=== PATIENT | female | born 1945 | race Caucasian/White ===

== ENCOUNTER → 2017-12-20 | Outpatient (CLI) | payer MEDICARE ==
[2017-12-20 14:31] LABS: Basophils # (A) 0.1 k/uL (0-0.2); Basophils % (A) 1 %; Eosinophils # (A) 0.2 k/uL (0-0.7); Eosinophils % (A) 3 %; HCT 40.2 % (34.0-46.0); HGB 13.8 gm/dL (11.4-16.0); Lymphocytes % (A) 26 %; MCH 29.5 pg (25.0-35.0); MCHC 34.3 g/dL (31.0-37.0); Mean Platelet Volume 6.6; Monocytes # (A) 0.4 k/uL (0-1.0); Monocytes % (A) 6 %; Neutrophils # (A) 4.7 k/uL (1.3-7.7); Neutrophils % (A) 62 %; Platelet Count 233 k/uL (150-450); RBC 4.68 m/uL (3.80-5.40); RDW 12.7 % (11.5-15.5); WBC 7.6 k/uL (3.8-10.6)
[2017-12-20 14:39] LABS: Albumin 4.3 g/dL (3.5-5.0); Calcium 9.7 mg/dL (8.4-10.2); Potassium 4.4 mmol/L (3.5-5.1); Total Bilirubin 0.7 mg/dL (0.2-1.3); Total Protein 7.4 g/dL (6.3-8.2)
[2017-12-20 14:55] LABS: T4, Free (Free Thyroxine) 0.96 ng/dL (0.78-2.19)
--- NOTE | 2017-12-20 23:27 | CT ---
EXAMINATION TYPE: CT abdomen pelvis wo/w con DATE OF EXAM: 12/20/2017 COMPARISON: NONE HISTORY: 71-year-old female Hematuria. History of polycystic kidney disease TECHNIQUE: Contiguous axial scanning of the abdomen and pelvis before and after administration of 100 ml Isovue 300 IV contrast. Delayed images through the kidneys and coronal/sagittal reconstructions performed. CT DLP: 1673 mGycm Automated exposure control for dose reduction was used. FINDINGS: Heart upper limits of normal in size without pericardial effusion. Strandy atelectasis in the lower l ungs without pericardial effusion. Small hiatal hernia. Liver enlarged measuring 20.8 cm. Some focal fat along the anterior falciform ligament. No biliary du ctal dilatation. Portal venous system is patent. Gallbladder, adrenal glands, spleen with hilar splenule, and pancreas appear within normal limits. No dilated small bowel, free fluid, or free air. Normal appendix. Oral contrast progressed to the hepatic flexure. There is mild superimposed left hemicolonic divertic ulosis, greatest in the sigmoid colon. Mild atelectatic calcifications within the abdominal aorta and iliac arteries. Extensive artifact from the patient's bilateral hip arthroplasties limits visualization of the pelvis . Uterus partially visualized as are both ovaries with a 1.2 cm cyst in the left ovary. Annual ultras ound surveillance performed for this finding. With attention to the kidneys, multiple lesions are present bilaterally. Many of the fluid attenuatio n but many are too small for adequate CT characterization. Others show varying degrees of hyperdensit y compatible with hemorrhagic or proteinaceous cysts. Largest on the right measures 2.6 cm and largest on the left measures 4.1 cm and are compatible with benign cysts. No clearly suspicious renal lesion is seen. LUNGS: Bilateral total of 4 biopsies. Degenerative changes left SI joint and facet arthropathy mid to lower lumbar spine. Endplate spondylosis lower thoracic spine. IMPRESSION: 1. NUMEROUS BILATERAL RENAL CYSTS MEASURING UP TO 4.1 CM. MANY OF THE RENAL LESIONS ARE TOO SMALL FOR ACCURATE CT CHARACTERIZATION AND SOME SHOW VARYING DEGREES OF HEMORRHAGIC AND PROTEINACEOUS DEBRIS. NO CLEARLY SUSPICIOUS RENAL LESION IS SEEN. 2. NO NEPHROLITHIASIS OR HYDRONEPHROSIS. 3. HEPATOMEGALY (20.8 CM), LEFT HEMICOLONIC DIVERTICULOSIS, AND SMALL HIATAL HERNIA.
== END | disposition home or self-care (01) ==
LOC: RADCTMAIN 13:23
PROVIDERS: ATTEND Urology
DX: N28.1 Cyst of kidney, acquired (principal); R16.0 Hepatomegaly, not elsewhere classified; K57.30 Diverticulosis of large intestine without perforation or abscess without bleeding; K44.9 Diaphragmatic hernia without obstruction or gangrene; E55.9 Vitamin D deficiency, unspecified; E03.9 Hypothyroidism, unspecified; Z91.012 Allergy to eggs; Z13.220 Encounter for screening for lipoid disorders; Z88.5 Allergy status to narcotic agent; Z88.2 Allergy status to sulfonamides; Z91.048 Other nonmedicinal substance allergy status; Z00.00 Encounter for general adult medical examination without abnormal findings
CPT/HCPCS: 84439; 80061; 80053; 84443; 85025; 82306; 74178; 36415; Q9967

== ENCOUNTER → 2018-11-15 | Outpatient (CLI) | payer MEDICARE ==
[2018-11-15 23:22] LABS: African American GFR (CKD) 52.7 (60.0-200.0)
== END | disposition home or self-care (01) ==
LOC: LABWHC1 16:02
PROVIDERS: ATTEND Pediatrics
DX: N18.2 Chronic kidney disease, stage 2 (mild) (principal)
CPT/HCPCS: 36415; 82565; 84520

== ENCOUNTER → 2018-11-18 | Outpatient (CLI) | payer MEDICARE ==
--- NOTE | 2018-11-18 14:29 | CT ---
EXAMINATION TYPE: CT abdomen pelvis wo/w con DATE OF EXAM: 11/18/2018 COMPARISON: 12/20/2017 HISTORY: Generalized abdominal pain, bloating and changes in bowel habits. History of diverticulosis. CT DLP: 1603.2 mGycm Automated exposure control for dose reduction was used. TECHNIQUE: Helical acquisition of images was performed from the lung bases through the pelvis. CONTRAST: Performed with Oral Contrast and without and with IV Contrast, patient injected with 80 mL of Isovue 300. FINDINGS: Lung bases are clear of infiltrate. There is minimal reticular interstitial density at the lung bases . There is mild hiatal hernia. There is no pleural effusion. There is no pericardial effusion. Liver spleen gallbladder appear normal. Bile ducts are not dilated. There is no evidence of pancreati c mass. There are numerous bilateral renal cortical cysts that measure up to 4 cm. There is no hydronephrosis . Ureters are not dilated. There is faint 3 mm calcification upper pole left kidney. There is 2 mm ca lcification interpolar left kidney. There is 4 mm calcification anterior left kidney. There is no ret roperitoneal adenopathy. There is normal renal function. Bladder distends smoothly. There is bilateral hip prosthesis. There is no evidence of a pelvic mass. There is no free fluid in the pelvis. Appendix appears normal. There is no mesenteric edema. There is no ascites or free air. There is normal contrast opacification of the small bowel. Uterus is antever nacho. There is mixed density oval-shaped mass on the left lateral pelvic sidewall measures 2.4 x 1.5 c m that contains fat. This could be a lymph node unchanged. There are a few sigmoid diverticula. There is no evidence of diverticulitis. There are some spondylotic changes in the lumbar spine. I see no b kaylee destructive process. There is no lumbar compression fracture. IMPRESSION: NUMEROUS RENAL CYSTS UNCHANGED. NO SUSPICIOUS RENAL MASS. NONOBSTRUCTING LEFT RENAL CALCULI. MINIMAL SIGMOID DIVERTICULOSIS. NO ADVERSE CHANGE OVERALL COMPARED TO OLD EXAM.
== END ==
LOC: RADCTMAIN 11:38
PROVIDERS: ATTEND Pediatrics
DX: K57.30 Diverticulosis of large intestine without perforation or abscess without bleeding (principal); N28.1 Cyst of kidney, acquired; N20.0 Calculus of kidney
CPT/HCPCS: 74178; Q9967 ×2

== ENCOUNTER → 2019-01-23 | Outpatient (CLI) | payer MEDICARE ==
--- NOTE | 2019-01-23 15:47 | NM ---
EXAMINATION TYPE: NM hepatobiliary w EF DATE OF EXAM: 01/23/2019 COMPARISON: NONE HISTORY: Pain TECHNIQUE: After the intravenous administration of 5.2 mCi Tc 99m Mebrofenin hepatobiliary scintigrap hy is performed. Immediate images post injection. FINDINGS: There is satisfactory initial accumulation of tracer by the liver. The gallbladder is visualized wit hin 35 minutes. The small bowel activity is noted within 10 minutes. At one hour 8 ounces of oral e nsure plus is given to mimic CCK and gallbladder ejection fraction is calculated at 81 %, in the norm al range. Therefore there is no scintigraphic evidence of cystic or common bile duct obstruction to suggest acute cholecystitis or gallbladder dyskinesia. IMPRESSION: Exam is within normal limits.
== END | disposition home or self-care (01) ==
LOC: RADNMMAIN 13:01
PROVIDERS: ATTEND Pediatrics
DX: K57.90 Diverticulosis of intestine, part unspecified, without perforation or abscess without bleeding (principal)
CPT/HCPCS: 78226; A9537

== ENCOUNTER 2020-01-04 09:55 | Inpatient (IN) | payer MEDICARE ==
[2020-01-04] MEDS ORDERED: ASPIRIN 81 MG PO STA (10:41)
--- NOTE | 2020-01-04 11:12 | ED ---
General Adult HPI - General Chief complaint: Shortness of Breath Stated complaint: COVID+, SOB Time Seen by Provider: 01/04/20 10:27 Source: patient, RN notes reviewed, old records reviewed Mode of arrival: wheelchair Limitations: no limitations - History of Present Illness Initial comments: 74-year-old female patient who has history of polycystic kidney disease parents ED for evaluation. Patient tested positive for Covid. She reports that she has been coughing for 10 days. However patient developed some chest pains today reports in her right parasternal region. She reports that she has had some shortness of breath with coughing but reports that her breathing is okay right now. Systemic: Pt denies fatigue, fever/chills, rash. Pt denies weakness, night sweats, weight loss. Neuro: Pt denies headache, visual disturbances, syncope or pre-syncope. HEENT: Pt denies ocular discharge or irritation, otalgia, rhinorrhea, pharyngitis or notable lymphadenopathy. Cardiopulmonary: Pt denies SOB, heart palpitations, dyspnea on exertion. Abdominal/GI: Pt denies abdominal pain, n/v/d. : Pt denies dysuria, burning w/ urination, frequency/urgency. Denies new onset urinary or bowel incontinence. MSK: Pt denies myalgia, loss of strength or function in extremities. Neuro: Pt denies new onset weakness, paresthesias. - Related Data Home Medications Medication Instructions Recorded Confirmed Irbesartan 75 mg PO HS 01/04/20 01/04/20 Allergies Allergy/AdvReac Type Severity Reaction Status Date / Time codeine Allergy Rash/Hives Verified 01/04/20 12:46 Sulfa (Sulfonamide Allergy Nausea Verified 01/04/20 12:46 Antibiotics) Review of Systems ROS Statement: Those systems with pertinent positive or pertinent negative responses have been documented in the HPI. ROS Other: All systems not noted in ROS Statement are negative. Past Medical History Additional Past Medical History / Comment(s): polycystic kidney disease Additional Past Surgical History / Comment(s): double hip replacement Smoking Status: Never smoker Past Alcohol Use History: None Reported Past Drug Use History: None Reported General Exam - General Exam Comments Initial Comments: Constitutional: NAD, AOX3, Pt has pleasant affect. HEENT: NC/AT, trachea midline, neck supple, no lymphadenopathy. Posterior pharynx non erythematous, without exudates. External ears appear normal, without discharge. Mucous membranes moist. Eyes PERRLA, EOM intact. There is no scleral icterus. No pallor noted. Cardiopulmonary: RRR, no murmurs, rubs or gallops, no JVD noted. Mild rales note d right side. No peripheral edema. Abdominal exam: Abdomen soft and non-distended. Abdomen non-tender to palpation in all 4 quadrants. Bowel sounds active in LLQ. No hepatosplenomegaly. No ecchymosis Neuro: CN II-XII intact. No nuchal rigidity. No cervical spinal tenderness. MSK: No posterior calf tenderness bilaterally, homans sign negative bilaterally. Posterior tibialis and radial pulse +2 bilaterally. Sensation intact in upper and lower extremities. Full active ROM in upper and lower extremities, 5/5 stregnth. Limitations: no limitations Course Vital Signs 01/04/20 01/04/20 10:05 12:24 Temperature 98.6 F 98.2 F Pulse Rate 74 66 Respiratory 18 16 Rate Blood Pressure 127/78 141/91 O2 Sat by Pulse 95 95 Oximetry Medical Decision Making - Medical Decision Making 74-year-old female patient known covid positive to ED for chest pain, right sided. Described as dull and achy. Began earlier today. Vital signs are stable, afebrile. Physical exam negative for acute pathology. The investigations are all unremarkable. EKG is nonischemic. States laid questional patchy opacity of the right midlung. She'll be admitted for serial troponins cardiology evaluation. Case discussed with Dr. Robertson. - Lab Data Result diagrams: 01/04/20 11:01/04/20 11:04 Lab Results 01/04/20 01/04/20 01/04/20 Range/Units 11:04 11: 11:04 WBC 7.0 (3.8-10.6) k/uL RBC 4.79 (3.80-5.40) m/uL Hgb 14.4 (11.4-16.0) gm/dL Hct 42.2 (34.0-46.0) % MCV 88.1 (80.0-100.0) fL MCH 30.0 (25.0-35.0) pg MCHC 34.0 (31.0-37.0) g/dL RDW 12.3 (11.5-15.5) % Plt Count 200 (150-450) k/uL Neutrophils % 66 % Lymphocytes % 23 % Monocytes % 6 % Eosinophils % 3 % Basophils % 2 % Neutrophils # 4.6 (1.3-7.7) k/uL Lymphocytes # 1.6 (1.0-4.8) k/uL Monocytes # 0.4 (0-1.0) k/uL Eosinophils # 0.2 (0-0.7) k/uL Basophils # 0.1 (0-0.2) k/uL PT 9.8 (9.0-12.0) sec INR 0.9 (<1.2) APTT 22.9 (22.0-30.0) sec Sodium 139 (137-145) mmol/L Potassium 4.3 (3.5-5.1) mmol/L Chloride 108 H (98-107) mmol/L Carbon Dioxide 25 (22-30) mmol/L Anion Gap 6 mmol/L BUN 24 H (7-17) mg/dL Creatinine 0.77 (0.52-1.04) mg/dL Est GFR (CKD-EPI)AfAm 89 (>60 ml/min/1.73 sqM) Est GFR (CKD-EPI)NonAf 77 (>60 ml/min/1.73 sqM) Glucose 107 H (74-99) mg/dL Plasma Lactic Acid Aravind (0.7-2.0) mmol/L Calcium 9.0 (8.4-10.2) mg/dL Magnesium 2.1 (1.6-2.3) mg/dL Total Bilirubin 0.7 (0.2-1.3) mg/dL AST 23 (14-36) U/L ALT 14 (4-34) U/L Alkaline Phosphatase 74 (38-126) U/L Lactate Dehydrogenase 436 (313-618) U/L Troponin I (0.000-0.034) ng/mL C-Reactive Protein 5.2 (<10.0) mg/L Total Protein 7.3 (6.3-8.2) g/dL Albumin 4.2 (3.5-5.0) g/dL 01/04/20 01/04/20 Range/Units 11:04 11:04 WBC (3.8-10.6) k/uL RBC (3.80-5.40) m/uL Hgb (11.4-16.0) gm/dL Hct (34.0-46.0) % MCV (80.0-100.0) fL MCH (25.0-35.0) pg MCHC (31.0-37.0) g/dL RDW (11.5-15.5) % Plt Count (150-450) k/uL Neutrophils % % Lymphocytes % % Monocytes % % Eosinophils % % Basophils % % Neutrophils # (1.3-7.7) k/uL Lymphocytes # (1.0-4.8) k/uL Monocytes # (0-1.0) k/uL Eosinophils # (0-0.7) k/uL Basophils # (0-0.2) k/uL PT (9.0-12.0) sec INR (<1.2) APTT (22.0-30.0) sec Sodium (137-145) mmol/L Potassium (3.5-5.1) mmol/L Chloride (98-107) mmol/L Carbon Dioxide (22-30) mmol/L Anion Gap mmol/L BUN (7-17) mg/dL Creatinine (0.52-1.04) mg/dL Est GFR (CKD-EPI)AfAm (>60 ml/min/1.73 sqM) Est GFR (CKD-EPI)NonAf (>60 ml/min/1.73 sqM) Glucose (74-99) mg/dL Plasma Lactic Acid Aravind 1.6 (0.7-2.0) mmol/L Calcium (8.4-10.2) mg/dL Magnesium (1.6-2.3) mg/dL Total Bilirubin (0.2-1.3) mg/dL AST (14-36) U/L ALT (4-34) U/L Alkaline Phosphatase (38-126) U/L Lactate Dehydrogenase (313-618) U/L Troponin I <0.012 (0.000-0.034) ng/mL C-Reactive Protein (<10.0) mg/L Total Protein (6.3-8.2) g/dL Albumin (3.5-5.0) g/dL - EKG Data -: EKG Interpreted by Me (and Dr. Robertson ) EKG Comments: ventricular rate 69, pr interval 152, qrs 86, qt/qtc 446/477. normal sinus rhythm. prolonged qt. nonspecific t-wave abnormality. no concern for acute ischemia at this time. Disposition Clinical Impression: COVID-19, Chest pain Disposition: ADMITTED IP TO THIS HOSP Condition: Serious Is patient prescribed a controlled substance at d/c from ED?: No Referrals: Vijay Bonilla MD [Primary Care Provider] - 1-2 days
[2020-01-04 11:22] LABS: Basophils # (A) 0.1 k/uL (0-0.2); Basophils % (A) 2 %; Eosinophils # (A) 0.2 k/uL (0-0.7); Eosinophils % (A) 3 %; HCT 42.2 % (34.0-46.0); HGB 14.4 gm/dL (11.4-16.0); Lymphocytes # (A) 1.6 k/uL (1.0-4.8); Lymphocytes % (A) 23 %; MCV 88.1 fL (80.0-100.0); Mean Platelet Volume 7.8; Monocytes # (A) 0.4 k/uL (0-1.0); Monocytes % (A) 6 %; Neutrophils # (A) 4.6 k/uL (1.3-7.7); Neutrophils % (A) 66 %; Platelet Count 200 k/uL (150-450); RBC 4.79 m/uL (3.80-5.40); RDW 12.3 % (11.5-15.5)
[2020-01-04 11:38] LABS: INR 0.9 (<1.2); Partial Thromboplastin Time 22.9 sec (22.0-30.0); Prothrombin Time 9.8 sec (9.0-12.0)
[2020-01-04 11:39] LABS: Albumin 4.2 g/dL (3.5-5.0); C Reactive Protein 5.2 mg/L (<10.0); Magnesium 2.1 mg/dL (1.6-2.3); Potassium 4.3 mmol/L (3.5-5.1); Total Bilirubin 0.7 mg/dL (0.2-1.3); Total Protein 7.3 g/dL (6.3-8.2)
--- NOTE | 2020-01-04 11:45 | XR ---
EXAMINATION TYPE: XR chest 1V portable DATE OF EXAM: 01/04/2020 CLINICAL HISTORY: Suspected COVID-19 pneumonia. TECHNIQUE: Portable frontal view of the chest. COMPARISON: None FINDINGS: The cardiomediastinal silhouette is within normal limits for size. Pulmonary vasculature i s normal. There is very subtle patchy opacity of the right mid lung. No pleural effusion or pneumotho rax seen. The osseous structures are intact. IMPRESSION: Questionable patchy opacity over the right mid lung.
[2020-01-04] MEDS ORDERED: NITROGLYCERIN SL TABS 0.4 MG TAB SUBLINGUAL PRN (13:43)
[2020-01-04] MEDS ORDERED: guaiFENesin-DM 100-10MG/5ML 10 ML CUP PO PRN (16:29)
[2020-01-04] MEDS ORDERED: ACETAMINOPHEN TAB 325 MG TAB PO STA (16:37)
[2020-01-04] MEDS: SODIUM CHLORIDE 0.9% 1,000 ML IV SCH (16:47)
--- NOTE | 2020-01-04 17:17 | P.HPIM ---
History of Present Illness patient very pleasant 74-year-old female who was recently diagnosed with Covid 19 about 10 days ago came in with complaints of coughing with greenish sputum production started about couple days ago along with chest pain is pleuritic and only happens when she coughs on the right side of the chest along with some shortness of breath. Patient was actually admitted for rule out acute coronary syndromes. Patient chest pain is pleuritic and significantly severe.patient had a chest x-ray which is suspicious for right middle lobe infiltrate although doesn't look like typical pneumonic infiltrate. Cardiology was consulted. I'll obtain a sputum culture patient will be started on Rocephin although there is no leukocytosis or fever at this time. Lungs are clear to auscultation. We'll [place] in his computed tomography scan of the chest which will help me rule out pulmonary embolism as well as pneumonia which can be post viral. Review of Systems REVIEW OF SYSTEMS: CONSTITUTIONAL: No fever, no malaise, no fatigue. HEENT: No recent visual problems or hearing problems. Denied any sore throat. CARDIOVASCULAR: Noorthopnea, PND, no palpitations, no syncope. PULMONARY: no hemoptysis. GASTROINTESTINAL: No diarrhea, no nausea, no vomiting, no abdominal pain. NEUROLOGICAL: No headaches, no weakness, no numbness. HEMATOLOGICAL: Denies any bleeding or petechiae. GENITOURINARY: Denies any burning micturition, frequency, or urgency. MUSCULOSKELETAL/RHEUMATOLOGICAL: Denies any joint pain, swelling, or any muscle pain. ENDOCRINE: Denies any polyuria or polydipsia. The rest of the 14-point review of systems is negative. Past Medical History Additional Past Medical History / Comment(s): polycystic kidney disease Additional Past Surgical History / Comment(s): double hip replacement Smoking Status: Never smoker Past Alcohol Use History: None Reported Past Drug Use History: None Reported Medications and Allergies Home Medications Medication Instructions Recorded Confirmed Type Irbesartan 75 mg PO HS 01/04/20 01/04/20 History Allergies Allergy/AdvReac Type Severity Reaction Status Date / Time codeine Allergy Rash/Hives Verified 01/04/20 12:46 Sulfa (Sulfonamide Allergy Nausea Verified 01/04/20 12:46 Antibiotics) Physical Exam Vitals: Vital Signs Temp Pulse Resp BP Pulse Ox 01/04/20 16:49 98.2 F 68 16 142/78 94 L 11/06/20 14:42 98.2 F 67 14 141/78 96 01/04/20 14:04 98.2 F 64 16 95 01/04/20 12:24 98.2 F 66 16 141/91 95 01/04/20 10:05 98.6 F 74 18 127/78 95 Intake and Output 01/04/20 01/04/20 01/04/20 06:59 14:59 22:59 Other: Weight 81.193 kg PHYSICAL EXAMINATION: GENERAL: The patient is alert and oriented x3, not in any acute distress. Well developed, well nourished. HEENT: Pupils are round and equally reacting to light. EOMI. No scleral icterus. No conjunctival pallor. Normocephalic, atraumatic. No pharyngeal erythema. No thyromegaly. CARDIOVASCULAR: S1 and S2 present. No murmurs, rubs, or gallops. PULMONARY: Chest is clear to auscultation, no wheezing or crackles. ABDOMEN: Soft, nontender, nondistended, normoactive bowel sounds. No palpable organomegaly. MUSCULOSKELETAL: No joint swelling or deformity. EXTREMITIES: No cyanosis, clubbing, or pedal edema. NEUROLOGICAL: Gross neurological examination did not reveal any focal deficits. SKIN: No rashes. Results CBC & Chem 7: 01/04/20 11:04 01/04/20 11:04 Labs: Abnormal Lab Results - Last 24 Hours (Table) 01/04/20 Range/Units 11:04 Chloride 108 H (98-107) mmol/L BUN 24 H (7-17) mg/dL Glucose 107 H (74-99) mg/dL Assessment and Plan Plan: -chest pain: Pleuritic in nature, cardiology is also evaluating the patient and we'll also rule out cardiac causes. Possibility of either postviral pneumonia or a PE which can be ruled out with a CT angios the chest. We'll Also obtain sputum cultures. Patient will be started on Rocephin for now.inflammatory markers are within normal limits. -recent Covid 19 pneumonia -History of polycystic kidney disease
--- NOTE | 2020-01-04 17:38 | CT ---
EXAMINATION TYPE: CT angio chest DATE OF EXAM: 01/04/2020 COMPARISON: None HISTORY: cough and shortness of breath. CT DLP: 324.7 mGycm Automated exposure control for dose reduction was used. CONTRAST: Performed with IV Contrast, patient injected with 100 mL of Isovue 370. There are 3-D post processed images. The lungs are clear of consolidation. There is no pleural effusion. There is small hiatal hernia. Perri er and spleen appear intact. There is no evidence of pancreatic mass. Heart and mediastinum are normal. There are no hilar masses. Thoracic aorta is intact. There is no an eurysm or dissection. The ascending aorta measures 3.5 cm. There is normal contrast opacification of the pulmonary arteries. There are no filling defects. There is spurring in the thoracic spine. I see no bony destructive process. IMPRESSION: No evidence of pulmonary embolism. Small hiatal hernia.
[2020-01-04 20:14] LABS: Ferritin 302.3 ng/mL (10.0-291.0)
[2020-01-04] MEDS ORDERED: ACETAMINOPHEN TAB 325 MG TAB PO PRN (21:03)
[2020-01-04] MEDS ORDERED: LOSARTAN 25 MG TAB PO SCH (21:15)
[2020-01-05] MEDS: SODIUM CHLORIDE 0.9% 1,000 ML IV SCH ×2 (04:47→06:35)
[2020-01-05 07:26] LABS: Cholesterol 154 mg/dL (<200); HDL Cholesterol 28 mg/dL (40-60); LDL Cholesterol,Calculated 87 mg/dL (0-99); Triglycerides 196 mg/dL (<150)
[2020-01-05] MEDS ORDERED: ASPIRIN 325 MG TAB PO SCH (09:00)
[2020-01-05 09:05] VITALS: TEMP 97.9
[2020-01-05] MEDS: ALBUTEROL HFA INHALER INHALATION PRN ×2 (09:22→12:44)
[2020-01-05 12:52] VITALS: BP 178/85; PULSE 68; RESP 16
--- NOTE | 2020-01-05 14:07 | P.CRDCN ---
History of Present Illness Consult date: 01/05/20 Consult reason: chest pain (COVID) History of present illness: History of present illness: This is a 74-year-old female with past medical history of polycystic kidney disease. Patient was recently tested positive for Covid at the urgent care center about 10 days ago. She presented to [facility] emergency center yesterday due to chest pain that was a pressure under her bilateral breasts along with a cough. She complained of shortness of breath with cough and pain with coughing. She is found to be afebrile, heart rate 74, blood pressure 127/78. CBC was normal. CMP was unremarkable. Blood sugar 107. Lactic acid 1.7. Troponin negative on 3 draws. Triglycerides 196, cholesterol 154, LDL 87, HDL 28. Pro-calcitonin 0.4. LDH normal at 436. D-dimer 0.3. EKG was a sinus rhythm with no acute ST changes. Chest x-ray revealed questionable patchy opacities over the right mid lung. CT angiogram of the chest was negative for pulmonary embolism. Review Of Systems: Limited due to Covid isolation. Lungs: No shortness of breath, reports cough Cardiovascular: No chest pain, no lower extremity edema. Physical examination: Limited due to Covid isolation. Gen: This is a 74-year-old female. Patient is resting in bed and appears comfortable and in no acute distress. VS: Afebrile, heart rate 62, blood pressure 177/91, pulse ox 94% on room air. HEENT: Head is atraumatic, normocephalic. LUNGS: No acute respiratory distress. No accessory muscle usage. NEUROLOGICAL: Patient is awake, alert and oriented x3. Assessment: Pleuritic type chest pain, acute Selene syndrome ruled out Pulmonary embolism ruled out Recent positive test for Covid 19 Plan: Obtain 2-D echocardiogram and Doppler study to assess cardiac structure and function Patient is cleared for discharge from cardiology. Thank you kindly for this consultation. Nurse practitioner note has been reviewed, I agree with documented findings and plan of care. Patient was seen and examined. Past Medical History Additional Past Medical History / Comment(s): polycystic kidney disease History of Any Multi-Drug Resistant Organisms: None Reported Additional Past Surgical History / Comment(s): double hip replacement Past Anesthesia/Blood Transfusion Reactions: No Reported Reaction Smoking Status: Former smoker - Past Family History Father Additional Family Medical History / Comment(s): of old age Mother Additional Family Medical History / Comment(s): pancreatic ca Medications and Allergies Home Medications Medication Instructions Recorded Confirmed Type Irbesartan 75 mg PO HS 01/04/20 01/04/20 History Albuterol Inhaler [Ventolin Hfa 2 puff INHALATION RT-QID PRN #1 01/05/20 Rx Inhaler] inhaler Azithromycin [Zithromax Tri-Alex (3 500 mg PO DAILY 5 Days #5 tab 01/05/20 Rx tabs)] traMADol HCL [Ultram] 50 mg PO Q4HR PRN 3 Days #18 tab 01/05/20 Rx Allergies Allergy/AdvReac Type Severity Reaction Status Date / Time codeine Allergy Rash/Hives Verified 01/04/20 12:46 Sulfa (Sulfonamide Allergy Nausea Verified 01/04/20 12:46 Antibiotics) Physical Exam Vitals: Vital Signs Temp Pulse Pulse Resp BP BP Pulse Ox 01/05/20 11:30 68 16 178/85 95 01/05/20 09:00 97.9 F 62 18 177/91 94 L 01/05/20 04:00 97.8 F 62 18 148/79 94 L 01/05/20 00:00 98 F 63 18 135/68 96 01/04/20 20:00 98.9 F 68 60 18 154/86 151/84 94 L 01/04/20 19:28 69 19 145/85 96 01/04/20 16:49 98.2 F 68 16 142/78 94 L 01/04/20 14:42 98.2 F 67 14 141/78 96 01/04/20 14:04 98.2 F 64 16 95 Intake and Output 01/04/20 01/05/20 01/05/20 22:59 06:59 14:59 Other: # Voids 1 1 Weight 81.193 kg 91.5 kg Results 01/04/20 11:04 01/04/20 11:04 Cardiac Enzymes 01/04/20 01/04/20 Range/Units 13:01 16:42 Troponin I <0.012 <0.012 (0.000-0.034) ng/mL Lipids 01/05/20 Range/Units 06:47 Triglycerides 196 H (<150) mg/dL Cholesterol 154 (<200) mg/dL HDL Cholesterol 28 L (40-60) mg/dL Current Medications Generic Name Dose Route Start Last Admin Trade Name Freq PRN Reason Stop Dose Admin Acetaminophen 650 mg 01/04/20 21:03 01/04/20 22:08 Acetaminophen Tab 325 Mg Tab PO 650 mg Q4HR PRN Administration Fever and/ or Pain Albuterol Sulfate 2 puff 01/04/20 16:28 01/05/20 12:44 Albuterol Hfa Inhaler INHALATION 2 puff RT-QID PRN Administration Shortness Of Breath Or Wheezing Aspirin 325 mg 01/05/20 09:00 01/05/20 09:01 Aspirin 325 Mg Tab PO 325 mg DAILY LILLIE Administration Guaifenesin/Dextromethorphan 10 ml 01/04/20 16:29 Guaifenesin-Dm 100-10mg/5ml 10 Ml Cup PO Q6H PRN Cough Sodium Chloride 1,000 mls @ 75 mls/hr 01/04/20 14:00 01/05/20 06:35 Saline 0.9% IV 75 mls/hr .[id number] LILLIE Administration Ceftriaxone Sodium 2 gm/ 50 mls @ 100 mls/hr 01/04/20 16:30 01/04/20 16:47 Sodium Chloride IVPB 100 mls/hr Q24H LILLIE Administration Losartan Potassium 25 mg 01/04/20 21:15 01/04/20 22:08 Losartan 25 Mg Tab PO 25 mg HS LILLIE Administration Nitroglycerin 0.4 mg 01/04/20 13:43 Nitroglycerin Sl Tabs 0.4 Mg Tab SUBLINGUAL Q5M PRN Chest Pain Intake and Output 01/04/20 01/05/20 01/05/20 22:59 06:59 14:59 Other: # Voids 1 1 Weight 81.193 kg 91.5 kg 01/04/20 11:04 01/04/20 11:04
--- NOTE | 2020-01-05 14:56 | P.DS ---
Providers Date of admission: 01/04/20 13:37 Attending physician: Jesús Bradley MD Consults: 01/04/20 13:43 Consult Physician Urgent Consulting Provider: Madhav Hines Consult Reason/Comments: chest pain, covid Do you want consulting provider notified?: Yes Primary care physician: [facility] Course: 74-year-old female who was recently diagnosed with Covid 19 about 10 days ago came in with complaints of coughing with greenish sputum production started about couple days ago along with chest pain is pleuritic and only happens when she coughs on the right side of the chest along with some shortness of breath. Patient was actually admitted for rule out acute coronary syndromes. Patient chest pain is pleuritic and significantly severe.patient had a chest x-ray which is suspicious for right middle lobe infiltrate although doesn't look like typical pneumonic infiltrate. Cardiology was consulted. I'll obtain a sputum culture patient will be started on Rocephin although there is no leukocytosis or fever at this time. Lungs are clear to auscultation. We'll [place] in his computed tomography scan of the chest which will help me rule out pulmonary embolism as well as pneumonia which can be post viral. 01/05/2020 Patient is not hypoxemic at this time. CT angios did not show any pneumonia but patient may have post viral bronchitis for which patient will be discharged on azithromycin CT angios did not show any pulmonary embolism. Patient does have severe musculoskeletal and pleuritic chest pain for which patient will be given a prescription for non-steroidal anti-inflammatory medication. Echo cardiac exam is being obtained if cleared by cardiology patient will be discharged today. PHYSICAL EXAMINATION: GENERAL: The patient is alert and oriented x3, not in any acute distress. Well developed, well nourished. HEENT: Pupils are round and equally reacting to light. EOMI. No scleral icterus. No conjunctival pallor. Normocephalic, atraumatic. No pharyngeal erythema. No thyromegaly. CARDIOVASCULAR: S1 and S2 present. No murmurs, rubs, or gallops. PULMONARY: Chest is clear to auscultation, no wheezing or crackles. ABDOMEN: Soft, nontender, nondistended, normoactive bowel sounds. No palpable organomegaly. MUSCULOSKELETAL: No joint swelling or deformity. EXTREMITIES: No cyanosis, clubbing, or pedal edema. NEUROLOGICAL: Gross neurological examination did not reveal any focal deficits. SKIN: No rashes. Assessment and Plan Plan: -chest pain: Pleuritic in nature, probably not cardiac, cardiology evaluated the patient. With regard patient will be discharged today ruled out post viral pneumonia, rule out pulmonary embolism. Patient probably has post viral bronchitis -recent Covid 19 pneumonia -History of polycystic kidney disease Patient Condition at Discharge: Serious Plan - Discharge Summary Discharge Rx Participant: Yes New Discharge Prescriptions: New traMADol HCL [Ultram] 50 mg PO Q4HR PRN 3 Days #18 tab PRN Reason: Pain Albuterol Inhaler [Ventolin Hfa Inhaler] 2 puff INHALATION RT-QID PRN #1 in haler PRN Reason: Shortness Of Breath Or Wheezing Azithromycin [Zithromax Tri-Alex (3 tabs)] 500 mg PO DAILY 5 Days #5 tab guaiFENesin-DM 100-10MG/5ML [Robitussin DM] 10 ml PO QID PRN #1 bottle PRN Reason: Cough Continue Irbesartan 75 mg PO HS Discharge Medication List Irbesartan 75 mg PO HS 01/04/20 [History] Albuterol Inhaler [Ventolin Hfa Inhaler] 2 puff INHALATION RT-QID PRN #1 inhaler 01/05/20 [Rx] Azithromycin [Zithromax Tri-Alex (3 tabs)] 500 mg PO DAILY 5 Days #5 tab 01/05/20 [Rx] guaiFENesin-DM 100-10MG/5ML [Robitussin DM] 10 ml PO QID PRN #1 bottle 01/05/20 [Rx] traMADol HCL [Ultram] 50 mg PO Q4HR PRN 3 Days #18 tab 01/05/20 [Rx] Follow up Appointment(s)/Referral(s): Vijay Bonilla MD [Primary Care Provider] - 3 Days Patient Instructions/Handouts: Chest Pain (DC) Discharge Disposition: HOME SELF-CARE
--- NOTE | 2020-01-05 15:36 | ECHOF ---
Referral Reason:chest pain MEASUREMENTS -------- HEIGHT: 170.2 cm WEIGHT: 91.2 kg BP: IVSd: 1.2 cm (0.6 - 1.1) LVIDd: 4.3 cm (3.9 - 5.3) LVPWd: 1.4 cm (0.6 - 1.1) IVSs: 1.7 cm LVIDs: 3.0 cm LVPWs: 1.7 cm LAESV Index (A-L): 25.69 ml/m Ao Diam: 2.8 cm (2.0 - 3.7) AV Cusp: 1.7 cm (1.5 - 2.6) LA Diam: 3.3 cm (2.7 - 3.8) MV EXCURSION: 9.371 mm (> 18.000) MV EF SLOPE: 37 mm/s (70 - 150) EPSS: 0.8 cm MV E Hemal: 0.73 m/s MV DecT: 199 ms MV A Hemal: 0.88 m/s MV E/A Ratio: 0.83 RAP: 5.00 mmHg RVSP: 9.18 mmHg FINDINGS -------- This was a technically good study. The left ventricular size is normal. There is mild concentric left ventricular hypertrophy. Overa ll left ventricular systolic function is normal with, an EF between 55 - 60 %. Normal LAP Grade 1 D iastolic Dysfunction. The right ventricle is normal in size. The left atrial size is normal. Normal LA size by volume 22+/-6 ml/m2. The right atrial size is normal. The aortic valve is trileaflet and appears structurally normal. The mitral valve is normal. The mitral valve leaflets are mildly thickened. Mild mitral regurgita tion is present. The tricuspid valve appears structurally normal. Mild tricuspid regurgitation present. Right vent ricular systolic pressure is normal at < 35 mmHg. There is no pulmonic regurgitation present. The aortic root size is normal. Normal inferior vena cava with normal inspiratory collapse consistent with estimated right atrial pre ssure of 5 mmHg. There is no pericardial effusion. CONCLUSIONS -------- 1. The left ventricular size is normal. 2. There is mild concentric left ventricular hypertrophy. 3. Overall left ventricular systolic function is normal with, an EF between 55 - 60 %. 4. Normal LAP Grade 1 Diastolic Dysfunction. 5. The mitral valve leaflets are mildly thickened. 6. Mild mitral regurgitation is present. 7. Mild tricuspid regurgitation present. 8. There is no pericardial effusion. [employer] CHIEF: Eloisa Frank RDCS
== END 2020-01-05 14:41 | disposition home or self-care (01) | DRG 204 ==
LOC: EC 09:55 → 3SCARD 13:37
PROVIDERS: ADMIT Internal Medicine; ATTEND Internal Medicine
DX: R07.1 Chest pain on breathing (principal); Q61.3 Polycystic kidney, unspecified; J40 Bronchitis, not specified as acute or chronic; Z96.643 Presence of artificial hip joint, bilateral; Z88.2 Allergy status to sulfonamides; Z79.899 Other long term (current) drug therapy; Z88.5 Allergy status to narcotic agent; Z80.0 Family history of malignant neoplasm of digestive organs; Z87.891 Personal history of nicotine dependence; Z86.19 Personal history of other infectious and parasitic diseases
CPT/HCPCS: 36415; 71045; 71275; 80053; 80061; 82728; 83605; 83615; 83735; 84145; 84484; 85025; 85379; 85610; 85730; 86140; 87040; 93005; 93306; 94640; 96365; 96366; 99285

== ENCOUNTER → 2020-12-04 | Outpatient (CLI) | payer MEDICARE ==
--- NOTE | 2020-12-05 04:15 | MR ---
EXAMINATION TYPE: MR knee LT wo con DATE OF EXAM: 12/04/2020 COMPARISON: None HISTORY: Left knee pain and swelling due to falling on knee, 2020 Multiplanar multiecho imaging of the left knee with no contrast. There is mild knee joint effusion. The anterior and posterior cruciate ligaments are intact. There is small horizontal tear of the anterior horn of the lateral meniscus on the superior surface. There is some mild increased signal on the inferior aspect of the posterior horn of the lateral meniscus cons istent with a mild tear. There is mild increased signal within the posterior horn of the medial meniscus consistent with mild intrasubstance tear. No evidence of a medial meniscal tear extending to the articular surface. The collateral ligaments are intact. There is no evidence of a fracture. I see no bony destructive pr ocess. There is no evidence of a fracture. IMPRESSION: Knee joint effusion consistent with some nonspecific synovitis. No evidence of ligamentous tear. Mild tears of the medial and lateral menisci as above. No significant joint space narrowing. No fract ure.
== END | disposition home or self-care (01) ==
LOC: RADMRIMAIN 16:32
PROVIDERS: ATTEND Orthopaedic Surgery
DX: M25.462 Effusion, left knee (principal)

== ENCOUNTER → 2021-01-23 | Outpatient (CLI) | payer MEDICARE ==
[2021-01-23 16:24] LABS: HCT 39.5 % (34.0-46.0); HGB 14.1 gm/dL (11.4-16.0); MCH 30.3 pg (25.0-35.0); MCHC 35.6 g/dL (31.0-37.0); MCV 84.9 fL (80.0-100.0); RBC 4.65 m/uL (3.80-5.40); RDW 12.2 % (11.5-15.5); WBC 7.9 k/uL (3.8-10.6)
[2021-01-23 16:25] LABS: Basophils # (A) 0.1 k/uL (0-0.2); Basophils % (A) 1 %; Eosinophils # (A) 0.3 k/uL (0-0.7); Eosinophils % (A) 3 %; Lymphocytes # (A) 2.2 k/uL (1.0-4.8); Lymphocytes % (A) 28 %; Mean Platelet Volume 7.2; Monocytes # (A) 0.5 k/uL (0-1.0); Monocytes % (A) 6 %; Neutrophils # (A) 4.7 k/uL (1.3-7.7); Neutrophils % (A) 60 %; Platelet Count 237 k/uL (150-450)
[2021-01-23 16:42] LABS: Potassium 4.2 mmol/L (3.5-5.1)
== END | disposition home or self-care (01) ==
LOC: LABPAT 15:36
PROVIDERS: ATTEND Orthopaedic Surgery
DX: Z01.812 Encounter for preprocedural laboratory examination (principal); M23.92 Unspecified internal derangement of left knee
CPT/HCPCS: 80051; 85025

== ENCOUNTER 2021-02-05 11:31 | Day surgery (SDC) | payer MEDICARE ==
[2021-02-03 10:32] VITALS: BMI 29.0
--- NOTE | 2021-02-04 17:40 | HP ---
HISTORY AND PHYSICAL DATE OF SURGERY: 02/05/2021 Megan Mullins is a 75-year-old patient seen with progressive left knee pain. We discussed options for treatment. She elected to proceed with left knee arthroscopy. Consent was obtained. PAST MEDICAL HISTORY: Hypothyroidism. PAST SURGICAL HISTORY: Bilateral total hip arthroplasty. DAILY MEDICATIONS: Levothyroxine, multivitamin, tramadol as needed. ALLERGIES: CODEINE, LODINE. SOCIAL HISTORY: She denies tobacco use. PHYSICAL EVALUATION OF THE LEFT KNEE: Range of motion zero to 130. Mild effusion. Tenderness along the medial and lateral joint lines. Positive medial Ca's. Positive lateral Ca's. Ligaments stable. Hip rotation without pain. Distal neurovascular exam intact. Left knee radiographs revealed mild osteoarthritis. MRI left knee revealed medial and lateral meniscal tears. IMPRESSION: 1. Internal derangement of the left knee with medial and lateral meniscal tears. 2. Hypothyroidism. PLAN: Left knee arthroscopy with partial meniscectomy and debridement. MMODL / IJN: [id number] /
[~2021-02-05 11:31] MED LIST: DEXAMETHASONE SOD PHOSPHATE 4 MG/ML 1 ML VIAL IV ONE; LIDOCAINE 1% (10MG/ML) FOR IV START INTRADERMA PRN; ONDANSETRON 4 MG/2 ML VIAL IVP ONE; ONDANSETRON 4 MG/2 ML VIAL IVP PRN
[2021-02-05] MEDS: LACTATED RINGERS 1,000 ML IV SCH ×2 (12:05→14:57)
[2021-02-05] MEDS ORDERED: BUPIVACAINE (PF) 0.25% 30 ML VIAL SQ ONE ×2 (12:25→13:04)
[2021-02-05] MEDS ORDERED: LIDOCAINE 1% INJ 10MG/ML (20 ML MDV) ONE (12:28)
[2021-02-05] MEDS ORDERED: fentaNYL (PF) 50 MCG/ML 2 ML AMP ONE (12:28)
[2021-02-05] MEDS ORDERED: SUCCINYLCHOLINE CHLORIDE VIAL 200 MG/10 ML VIAL IV ONE (12:28)
[2021-02-05] MEDS ORDERED: PHENYLEPHRINE-0.9% NACL SYG 1,000 MCG/10 ML SYRINGE ONE (12:28)
[2021-02-05] MEDS ORDERED: PROPOFOL 10 MG/ML 20 ML VIAL IV ONE (12:28)
[2021-02-05] MEDS ORDERED: GLYCOPYRROLATE 0.2 MG/ML 2 ML VIAL ONE (12:28)
--- NOTE | 2021-02-05 13:17 | P.OP ---
Date of Procedure: 02/05/21 Preoperative Diagnosis: Internal derangement left Postoperative Diagnosis: 1. Tear lateral meniscus left knee 2. 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 Reactive synovitis medial, lateral and suprapatellar compartments left knee Procedure(s) Performed: 1. Arthroscopic partial lateral meniscectomy left knee 2. Arthroscopic chondroplasty lateral femoral condyle 3. Arthroscopic partial synovectomy medial, lateral and suprapatellar compartments left knee Anesthesia: JUSTINAA, local Surgeon: Andre Kearns Estimated Blood Loss (ml): 7 Pathology: none sent Condition: stable Disposition: PACU Indications for Procedure: 75-year-old patient seen with progressive left knee pain. After treatment options were discussed, she elected to proceed with arthroscopy. Operative Findings: See description of procedure Description of Procedure: Patient was taken to the operative suite. Patient underwent a general anesthetic by the department of anesthesia. Patient was given preoperative antibiotics. The left lower extremity was placed in a well-padded arthroscopic leg denis. The left leg was prepped and draped in the normal sterile orthopedic fashion. A lateral parapatellar and suprapatellar incision was made. Trochars were inserted. Arthroscopy was initiated. Suprapatellar pouch revealed diffuse thick reactive synovitis. The patellofemoral joint appeared to articulate congruently. There was grade 1 chondromalacia of the patella. The scope was guided into the medial gutter. No loose bodies or plica were identified The scope was then guided into the medial compartment. A medial pa rapatellar incision was made. Trocar inserted followed by probe. The medial meniscus was found to be stable. There were grade 1 chondromalacia changes medial compartment with no tears present. There was some thick reactive synovitis anteriorly. I introduced a motorized shaver and performed a partial synovectomy. Shaver was removed. There was good decompression of synovitis. Scope and probe were then guided into the intercondylar notch. Cruciates were identified, probed and found to be stable. The scope and probe were then guided into lateral compartment. There was a complex tear involving the midbody lateral meniscus posterior and slight into the posterior horn. There were grade 2/3 chondromalacia changes of the medial femoral condyle with some osteochondral tears present. Her was some thick reactive synovitis anteriorly. I performed a partial lateral meniscectomy getting down to stable meniscal tissue. I performed a chondroplasty of the medial femoral condyle getting down to stable osteochondral tissue. I performed a partial synovectomy decompressing the thick reactive synovitis. The shaver was now removed. The residual meniscus was probed and was found to be stable. The residual osteochondral surface appears stable. There was good decompression of the synovitis. The scope was in guided back into the suprapatellar compartment. I introduced a motorized shaver into the super patellar compartment. I debrided some piecemeal fragments of meniscus I encountered. I performed a partial synovectomy. Shaver was removed. There appeared be good decompression of synovitis. I took one more look around the entire knee, no residual debris. Instruments were now removed from the joint. The joint was infiltrated with .25% Marcaine. Steri-Strips were applied to the portal sites. Sterile dressings were applied. The patient was placed into a JUDY hose. No tourniquet was utilized. The patient was awakened, transferred to a bed and taken to recovery stable satisfactory condition.
[2021-02-05 13:21] VITALS: TEMP 98.1
[2021-02-05] MEDS: HYDROmorphone 0.5 MG/0.5 ML SYRINGE IVP PRN ×2 (13:30→13:43)
[2021-02-05 13:33] VITALS: RESP 16
[2021-02-05 15:54] VITALS: BP 153/83; PULSE 69
== END 2021-02-05 16:24 | disposition home or self-care (01) ==
LOC: OR 11:31
PROVIDERS: ATTEND Orthopaedic Surgery
DX: M23.92 Unspecified internal derangement of left knee (principal); S83.282A Other tear of lateral meniscus, current injury, left knee, initial encounter; M22.42 Chondromalacia patellae, left knee; M65.9 Synovitis and tenosynovitis, unspecified; E03.9 Hypothyroidism, unspecified
CPT/HCPCS: 27130; J0330; J1100; J2405; J2001; J3010; J2370; J2704; J1170; J1790

== ENCOUNTER → 2024-08-16 | Outpatient (CLI) | payer MEDICARE ==
--- NOTE | 2024-08-16 12:33 | NM ---
EXAMINATION TYPE: NM bone 3 phase DATE OF EXAM: 08/16/2024 COMPARISON: Plain film CLINICAL INDICATION: Female, 78 years old with history of T84.84XA PAIN DUE TO INTERNAL ORTHOPEDIC [place] [facility]; Triple phase bone scintigraphy was performed following the injection of 24 mCi Tc 99m MDP. Immediate images and 4 hours post injection images acquired. FINDINGS: There is no significant abnormal accumulation of radiotracer to suggest metastatic disease to the bon e or other significant abnormality. Degeneration uptake seen throughout the joints and in the spine including the lateral right knee, L4- L5 disc spaces in the cervical spine. Degeneration also noted at the first digit metacarpophalangeal joints. IMPRESSION: 1. No scintigraphic evidence of osseous metastatic disease. 2. Scattered degeneration uptake. [facility], , 08/16/2024 12:31 PM
== END | disposition home or self-care (01) ==
LOC: RADNMMAIN 07:16
PROVIDERS: ATTEND Orthopaedic Surgery
DX: T84.84XA Pain due to internal orthopedic prosthetic devices, implants and grafts, initial encounter (principal); R93.7 Abnormal findings on diagnostic imaging of other parts of musculoskeletal system
CPT/HCPCS: 85379; 85652; 86140; 78315; A9503

== ENCOUNTER 2024-08-26 10:53 | Emergency (ER) | payer MEDICARE ==
[2024-08-26 11:01] VITALS: RESP 16; TEMP 97.8
--- NOTE | 2024-08-26 11:39 | ED ---
General Adult HPI - General Chief complaint: Back Pain/Injury Stated complaint: Back Pain Time Seen by Provider: 08/26/24 11:34 Source: patient, RN notes reviewed Mode of arrival: ambulatory Limitations: no limitations - History of Present Illness Initial comments: 78-year-old female presented the ER for evaluation of left sided back pain. Patient reports she is following up with orthopedics, , outpatient regarding back pain. Patient had imaging completed and bone density scan. She is scheduled to receive bone density scan results this week. Over the past week patient has also been complaining of a cramping left-sided abdominal pain. Along with nausea and diarrhea. Patient states she has been on a clear liquid diet since initiation of this abdominal pain. Patient does admit to a history of diverticulitis and was seen by PCP this week and prophylactically started on Flagyl and ciprofloxacin. Patient reports she has not taken any [id number] medications at this time. 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 She does state pain is worse with movement. She denies any fevers but states yesterday she did have mild chills. Denies any chest pain, shortness of breath, dizziness, lightheadedness, headache, urinary complaints, abnormal vaginal bleeding or discharge. Prior tubal ligation. No other previous abdominal surgeries. - Related Data Home Medications Medication Instructions Recorded Confirmed Irbesartan [Avapro] 75 mg PO DAILY 01/28/21 01/28/21 Levothyroxine Sodium [Synthroid] 75 mcg PO DAILY 01/28/21 01/28/21 Vitamin D3 38600 50,000 units PO DAILY 01/28/21 02/05/21 Previous Rx's Medication Instructions Recorded traMADol HCL [Ultram] 50 mg PO Q4HR PRN 3 Days #18 tab 01/05/20 traMADol HCl [Ultram] 50 mg PO Q6H PRN #15 tab 02/05/21 Lidocaine 5% Patch [Lidoderm 5% 1 patch TOPICAL DAILY PRN #30 patch 08/26/24 Patch] Allergies Allergy/AdvReac Type Severity Reaction Status Date / Time codeine Allergy Rash/Hives Verified 08/26/24 11:01 Sulfa (Sulfonamide Allergy Nausea Verified 08/26/24 11:01 Antibiotics) LODINE Allergy Itching Uncoded 08/26/24 11:01 Review of Systems ROS Statement: Those systems with pertinent positive or pertinent negative responses have been documented in the HPI. ROS Other: All systems not noted in ROS Statement are negative. Past Medical History Past Medical History: Renal Disease, Thyroid Disorder Additional Past Medical History / Comment(s): polycystic kidney disease History of Any Multi-Drug Resistant Organisms: None Reported Past Surgical History: Tubal Ligation Additional Past Surgical History / Comment(s): double hip replacement Past Anesthesia/Blood Transfusion Reactions: No Reported Reaction Past Psychological History: No Psychological Hx Reported Smoking Status: Former smoker Past Alcohol Use History: None Reported Past Drug Use History: None Reported - Past Family History Father Additional Family Medical History / Comment(s): of old age Mother Family Medical History: Cancer Additional Family Medical History / Comment(s): pancreatic ca General Exam Limitations: no limitations General appearance: alert, in no apparent distress Respiratory exam: Present: normal lung sounds bilaterally. Absent: respiratory distress, wheezes, rales, rhonchi, stridor Cardiovascular Exam: Present: regular rate, normal rhythm, normal heart sounds. Absent: systolic murmur, diastolic murmur, rubs, gallop, clicks GI/Abdominal exam: Present: soft, tenderness (left sided), normal bowel sounds Back exam: Present: full ROM, tenderness (lumbar), CVA tenderness (L) Neurological exam: Present: alert, oriented X3, CN II-XII intact Skin exam: Present: warm, dry, intact, normal color. Absent: rash Course Vital Signs 08/26/24 08/26/24 08/26/24 10:58 11:01 13:55 Temperature 97.8 F Pulse Rate 68 85 65 Respiratory 16 16 16 Rate Blood Pressure 162/80 150/65 168/68 O2 Sat by Pulse 97 98 98 Oximetry Medical Decision Making - Medical Decision Making Was pt. sent in by a medical professional or institution (, PA, BUSINESS PROCESS MANAGER, urgent care, hospital, or detention...) When possible be specific @ -No Did you speak to anyone other than the patient for history (EMS, parent, family, police, friend...)? What history was obtained from this source @ -No Did you review nursing and triage notes (agree or disagree)? Why? @ -I reviewed and agree with nursing and triage notes Were old charts reviewed (outside hosp., previous admission, EMS record, old EKG, old radiological studies, urgent care reports/EKG's, detention records)? Report findings @ -Prior medical records Differential Diagnosis (chest pain, altered mental status, abdominal pain women, abdominal pain men, vaginal bleeding, weakness, fever, dyspnea, syncope, headache, dizziness, GI bleed, back pain, seizure, CVA, palpatations, mental health, musculoskeletal)? @ -Differential Back Pain: Strain, zoster, cauda equina syndrome, epidural abscess, vertebral osteomyelitis, discitis, fracture, subluxation, disc herniation, DJD, spinal stenosis, dissection, AAA, pancreatitis, peptic ulcer disease, pyelonephritis, kidney stone, this is not meant to be an all-inclusive list. EKG interpreted by me (3pts min.). @ -None done X-rays interpreted by me (1pt min.). @ -None done CT interpreted by me (1pt min.). @ -CT abdomen pelvis showing no evidence of acute intra-abdominal process. Colonic diverticulosis. Normal appendix. Polycystic kidney disease with numerous bilateral renal cyst. No obstructive uropathy U/S interpreted by me (1pt. min.). @ -None done What testing was considered but not performed or refused? (CT, X-rays, U/S, labs)? Why? @ -None What meds were considered but not given or refused? Why? @ -None Did you discuss the management of the patient with other professionals (xavier mendoza i.e. , PA, BUSINESS PROCESS MANAGER, lab, RT, psych nurse, social media marketing analyst, cyber defense analyst, teacher, corrections officer, egg caser)? Give summary @ -No Was smoking cessation discussed for >3mins.? @ -No Was critical care preformed (if so, how long)? @ -No Were there social determinants of health that impacted care today? How? (Homelessness, low income, unemployed, alcoholism, drug addiction, transportation, low edu. Level, literacy, decrease access to med. care, snf, rehab)? @ -No Was there de-escalation of care discussed even if they declined (Discuss DNR or withdrawal of care, Hospice)? DNR status @ -No What co-morbidities impacted this encounter? (DM, HTN, Smoking, COPD, CAD, Cancer, CVA, ARF, Chemo, Hep., AIDS, mental health diagnosis, sleep apnea, morbid obesity)? @ -Polycystic kidney disease Was patient admitted / discharged? Hospital course, mention meds given and route, prescriptions, significant lab abnormalities, going to OR and other pertinent info. @ -Discharge. 78-year-old female presented the ER for evaluation of back pain. Vital signs stable. Laboratory studies unremarkable. UA with current small blood and 9 WBCs noted on urine and analysis. This will be sent for culture. Given present symptoms with history of diverticulitis and concern of worsening disease CT abdomen pelvis was obtained showing no evidence of acute intra- abdominal process. Patient provided with IV fluids and lidocaine patch for pain control in the emergency department. Upon reevaluation, patient reporting improvement. Pain believed to musculoskeletal nature advised her to follow-up with orthopedics. Patient discharged with tramadol starter pack. Lidocaine patch prescribed. Return parameters discussed. Patient discharged stable condition. Patient verbally expressed understanding agree with care plan. Case discussed with ED attending, Dr. Lancaster Undiagnosed new problem with uncertain prognosis? @ -No Drug Therapy requiring intensive monitoring for toxicity (Heparin, Nitro, Insulin, Cardizem)? @ -No Were any procedures done? @ -No Diagnosis/symptom? @ -Back pain Acute, or Chronic, or Acute on Chronic? @ -Acute Uncomplicated (without systemic symptoms) or Complicated (systemic symptoms)? @ -Uncomplicated Side effects of treatment? @ -No Exacerbation, Progression, or Severe Exacerbation? @ -No Poses a threat to life or bodily function? How? (Chest pain, [place], [place], pneumonia, PE, COPD, DKA, ARF, appy, cholecystitis, CVA, Diverticulitis, Homicidal, Suicida l, threat to staff... and all critical care pts) @ -No - Lab Data Result diagrams: 08/26/24 11:33 08/26/24 11:33 Lab Results 08/26/24 08/26/24 08/26/24 Range/Units 11:33 11:33 11:33 WBC 6.46 (4.50-10.00) 10*3/uL RBC 4.68 (4.10-5.20) 10*6/uL Hgb 14.3 (12.0-15.0) g/dL Hct 40.0 (37.2-46.3) % MCV 85.5 (80.0-97.0) fL MCH 30.6 (27.0-32.0) pg MCHC 35.8 (32.0-37.0) g/dL Plt Count 190 (140-440) 10*3/uL MPV 9.1 L (9.5-12.2) fL Immature Gran % (Auto) 0.3 % Neutrophils % 59.2 % Lymphocytes % 27.2 % Monocytes % 8.5 % Eosinophils % 3.4 % Basophils % 1.4 % Immature Gran # 0.02 (0.00-0.04) 10*3/uL Neutrophils # 3.82 (1.80-7.70) 10*3/uL Lymphocytes # 1.76 (0.90-5.00) 10*3/uL Monocytes # 0.55 (0.20-1.00) 10*3/uL Eosinophils # 0.22 (0.04-0.35) 10*3/uL Basophils # 0.09 (0.00-0.10) 10*3/uL Sodium 139 (137-145) mmol/L Potassium 4.2 (3.5-5.1) mmol/L Chloride 106 (98-107) mmol/L Carbon Dioxide 26 (22-30) mmol/L Anion Gap 7 mmol/L BUN 13 (7-17) mg/dL Creatinine 0.78 (0.52-1.04) mg/dL Est GFR (CKD-EPI)AfAm 85 (>60 ml/min/1.73 sqM) Est GFR (CKD-EPI)NonAf 74 (>60 ml/min/1.73 sqM) Glucose 98 (74-99) mg/dL Plasma Lactic Acid Aravind (0.7-2.0) mmol/L Calcium 9.6 (8.4-10.2) mg/dL Total Bilirubin 1.0 (0.2-1.3) mg/dL AST 28 (14-36) U/L ALT 19 (4-34) U/L Alkaline Phosphatase 76 (38-126) U/L Total Protein 7.2 (6.3-8.2) g/dL Albumin 4.4 (3.5-5.0) g/dL Lipase 120 (23-300) U/L Urine Color Yellow Urine Appearance Clear (Clear) Urine pH 5.5 (5.0-8.0) Ur Specific [place] 1.018 (1.001-1.035) Urine Protein Negative (Negative) Urine Glucose (UA) Negative (Negative) Urine Ketones Negative (Negative) Urine Blood Small H (Negative) Urine Nitrite Negative (Negative) Urine Bilirubin Negative (Negative) Urine Urobilinogen <2.0 (<2.0) mg/dL Ur Leukocyte Esterase Small H (Negative) Urine RBC 2 (0-5) /hpf Urine WBC 9 H (0-5) /hpf Ur Squamous Epith Cells 1 (0-4) /hpf Urine Mucus Moderate H (None) /hpf 08/26/24 Range/Units 11:33 WBC (4.50-10.00) 10*3/uL RBC (4.10-5.20) 10*6/uL Hgb (12.0-15.0) g/dL Hct (37.2-46.3) % MCV (80.0-97.0) fL MCH (27.0-32.0) pg MCHC (32.0-37.0) g/dL Plt Count (140-440) 10*3/uL MPV (9.5-12.2) fL Immature Gran % (Auto) % Neutrophils % % Lymphocytes % % Monocytes % % Eosinophils % % Basophils % % Immature Gran # (0.00-0.04) 10*3/uL Neutrophils # (1.80-7.70) 10*3/uL Lymphocytes # (0.90-5.00) 10*3/uL Monocytes # (0.20-1.00) 10*3/uL Eosinophils # (0.04-0.35) 10*3/uL Basophils # (0.00-0.10) 10*3/uL Sodium (137-145) mmol/L Potassium (3.5-5.1) mmol/L Chloride (98-107) mmol/L Carbon Dioxide (22-30) mmol/L Anion Gap mmol/L BUN (7-17) mg/dL Creatinine (0.52-1.04) mg/dL Est GFR (CKD-EPI)AfAm (>60 ml/min/1.73 sqM) Est GFR (CKD-EPI)NonAf (>60 ml/min/1.73 sqM) Glucose (74-99) mg/dL Plasma Lactic Acid Aravind 1.0 (0.7-2.0) mmol/L Calcium (8.4-10.2) mg/dL Total Bilirubin (0.2-1.3) mg/dL AST (14-36) U/L ALT (4-34) U/L Alkaline Phosphatase (38-126) U/L Total Protein (6.3-8.2) g/dL Albumin (3.5-5.0) g/dL Lipase (23-300) U/L Urine Color Urine Appearance (Clear) Urine pH (5.0-8.0) Ur Specific [place] (1.001-1.035) Urine Protein (Negative) Urine Glucose (UA) (Negative) Urine Ketones (Negative) Urine Blood (Negative) Urine Nitrite (Negative) Urine Bilirubin (Negative) Urine Urobilinogen (<2.0) mg/dL Ur Leukocyte Esterase (Negative) Urine RBC (0-5) /hpf Urine WBC (0-5) /hpf Ur Squamous Epith Cells (0-4) /hpf Urine Mucus (None) /hpf - Radiology Data Radiology results: report reviewed, image reviewed Disposition Clinical Impression: Back pain Disposition: HOME SELF-CARE Condition: Stable Instructions (If sedation given, give patient instructions): Acute Low Back Pain (ED) Additional Instructions: Follow-up closely with orthopedics. Return to the ER for any new or worsening concerns. Prescriptions: Lidocaine 5% Patch [Lidoderm 5% Patch] 1 patch TOPICAL DAILY PRN #30 patch PRN Reason: Pain Is patient prescribed a controlled substance at d/c from ED?: No Referrals: Vijay Bonilla MD [Primary Care Provider] - 1-2 days Medardo Renee MD [Medical Doctor] - 1-2 days Time of Disposition: 13:40
[2024-08-26] MEDS: SODIUM CHLORIDE 0.9% 1,000 ML IV ONE (11:52)
[2024-08-26 11:59] LABS: Basophils # (A) 0.09 10*3/uL (0.00-0.10); Basophils % (A) 1.4 %; Eosinophils # (A) 0.22 10*3/uL (0.04-0.35); Eosinophils % (A) 3.4 %; HGB 14.3 g/dL (12.0-15.0); Lymphocytes # (A) 1.76 10*3/uL (0.90-5.00); Lymphocytes % (A) 27.2 %; MCH 30.6 pg (27.0-32.0); MCHC 35.8 g/dL (32.0-37.0); MCV 85.5 fL (80.0-97.0); Mean Platelet Volume 9.1 fL (9.5-12.2); Monocytes # (A) 0.55 10*3/uL (0.20-1.00); Monocytes % (A) 8.5 %; Neutrophils # (A) 3.82 10*3/uL (1.80-7.70); Neutrophils % (A) 59.2 %; Platelet Count 190 10*3/uL (140-440); RBC 4.68 10*6/uL (4.10-5.20); RDW 11.6 % (11.5-14.5); WBC 6.46 10*3/uL (4.50-10.00)
[2024-08-26 12:09] LABS: ALT 19 U/L (4-34); AST 28 U/L (14-36); African American GFR (CKD) 85 (>60 ml/min/1.73 sqM); Albumin 4.4 g/dL (3.5-5.0); Alkaline Phosphatase 76 U/L (38-126); Anion Gap 7 mmol/L; Blood Urea Nitrogen 13 mg/dL (7-17); Calcium 9.6 mg/dL (8.4-10.2); Carbon Dioxide 26 mmol/L (22-30); Chloride 106 mmol/L (98-107); Glucose 98 mg/dL (74-99); Lipase 120 U/L (23-300); Non-African American GFR(CKD) 74 (>60 ml/min/1.73 sqM); Potassium 4.2 mmol/L (3.5-5.1); Sodium 139 mmol/L (137-145); Total Protein 7.2 g/dL (6.3-8.2)
[2024-08-26 12:10] LABS: Appearance,Urine Clear (Clear); Color,Urine Yellow; PH, Urine 5.5 (5.0-8.0); Protein,Urine Negative (Negative); Specific Gravity,Urine 1.018 (1.001-1.035)
[2024-08-26 12:11] LABS: Bilirubin,Urine Negative (Negative); Blood,Urine Small (Negative); Glucose,Urine (UA) Negative (Negative); Ketones,Urine Negative (Negative); Leukocyte Esterase,Urine Small (Negative); Mucus,Urine Moderate /hpf; Nitrite,Urine Negative (Negative); RBC,Urine 2 /hpf (0-5); Squamous Epithelial Cell,Urine 1 /hpf (0-4); Urobilinogen,Urine <2.0 mg/dL (<2.0); WBC,Urine 9 /hpf (0-5)
--- NOTE | 2024-08-26 13:15 | CT ---
EXAMINATION TYPE: CT abdomen pelvis w con DATE OF EXAM: 08/26/2024 12:48 PM COMPARISON: 11/18/2018. CLINICAL INDICATION: Female, 78 years old with history of left lumbar back pain/LLQ abd pain; LT lumb ar, back pain, LLQ pain, hx polycystic kidney, diverticulitis TECHNIQUE: Axial CT abdomen pelvis w con;Sagittal and coronal reformats were created on a separate w orkstation. Contrast used:100 mL of Isovue 300 with IV Contrast, (none if empty) Oral contrast used: without Oral Contrast (none if empty) CT DLP: 1039.2 mGycm, Automated exposure control for dose reduction was used. FINDINGS: LOWER CHEST: Unremarkable ABDOMEN LIVER: Unremarkable GALLBLADDER AND BILE DUCTS: Unremarkable. PANCREAS: Unremarkable. SPLEEN: Unremarkable. ADRENAL GLANDS: Unremarkable. KIDNEYS AND URETERS: No evidence of hydronephrosis or obstructing renal calculus. The ureters are unr emarkable. Bilateral innumerable renal cysts. 7 S1 with thin calcification measuring up to 37 mm i n the right the largest on the left measuring up to 5.0 cm. No follow-up recommended. PELVIS BLADDER: No evidence for wall thickening or mass given limitations of exam. REPRODUCTIVE: Unremarkable. ABDOMEN & PELVIS STOMACH AND BOWEL: No evidence of bowel obstruction. The appendix is normal. Scattered colonic divert iculosis. PERITONEUM/RETROPERITONEUM: No evidence of pneumoperitoneum or free fluid. VASCULATURE: No evidence of aortic aneurysm. MUSCULOSKELETAL: No acute osseous abnormalities bilateral hip arthroplasties appear intact and in the evaluation of the pelvis. LYMPH NODES: No gross evidence for lymphadenopathy. SOFT TISSUE/ABDOMINAL WALL: Unremarkable IMPRESSION: 1. No evidence for acute abdominal process. 2. Colonic diverticulosis. 3. Normal appendix. 4. Polycystic kidney disease with Innumerable bilateral renal cysts. No follow-up recommended. No ev idence for obstructive uropathy. [facility], , 08/26/2024 1:13 PM
[2024-08-26] MEDS: traMADol 50 MG STARTER PACK 3 TAB BTL PO STA (13:50)
[2024-08-26] MEDS: LIDOCAINE 4% PATCH TOPICAL ONE (13:50)
[2024-08-26 13:56] VITALS: BP 168/68; PULSE 65
== END 2024-08-26 13:56 | disposition home or self-care (01) ==
LOC: EC 10:53
DX: K57.30 Diverticulosis of large intestine without perforation or abscess without bleeding (principal); M54.50 Low back pain, unspecified; Q61.3 Polycystic kidney, unspecified; Z88.5 Allergy status to narcotic agent; Z88.1 Allergy status to other antibiotic agents; Z88.2 Allergy status to sulfonamides; Z87.891 Personal history of nicotine dependence
CPT/HCPCS: 99284; 36415; 80053; 83605; 83690; 85025; 81001; 87086; 74177; Q9967